=== PATIENT | female | born 1960 | race Caucasian/White ===

== ENCOUNTER 2018-01-20 08:52 | Day surgery (SDC) | payer OTHER ==
[2018-01-20] MEDS ORDERED: LIDOCAINE 100 MG SYRINGE (09:58)
[2018-01-20] MEDS ORDERED: PROPOFOL 40 ML (09:58)
== END 2018-01-20 11:29 | disposition home or self-care (01) ==
LOC: GIL 08:52
DX: Z12.11 Encounter for screening for malignant neoplasm of colon (principal); D12.5 Benign neoplasm of sigmoid colon; K64.8 Other hemorrhoids; J45.909 Unspecified asthma, uncomplicated
CPT/HCPCS: 45380; 88305